=== PATIENT | female | born 1960 | race Two or more races ===

== ENCOUNTER 2016-09-09 15:43 | Emergency (ER) | payer OTHER ==
[~2016-09-09] VITALS: Ht 170.2 cm; Wt 75.3 kg
--- NOTE | 2016-09-09 15:50 | NUR ---
AAOX3, BIBRA C/O AICD KEEPS ON FIRING MULTIPLE TIME IN THE LAST 3 WEEKS. SHE NOTICED THAT THE AICD FIRED AGAIN THIS AFTERNOON AROUND 3PM. PATIENT PLACED ON MONITOR. RESP IS EVEN AND UNLABORED WITH NAD NOTED. SKIN IS WARM AND NON DIAPHORETIC. DR PARRA AT BS FOR EVAL.
--- NOTE | 2016-09-09 15:57 | NUR ---
CALLED [facility] SPOKE WITH ISIDRO , REQUESTED A PACEMAKER INTERROGATION.
[2016-09-09 16:19] LABS: BASOPHILS % (AUTO) 0.7 % (0.0-2.0); EOSINOPHILS % (AUTO) 0.1 % (0.0-6.0); HEMATOCRIT 31 % (33-45); HEMOGLOBIN 10.6 g/dL (11.5-14.8); LYMPHOCYTES # (AUTO) 1.1 /CMM (0.8-4.8); LYMPHOCYTES % (AUTO) 18.3 % (20.0-44.0); MEAN CORPUSCULAR HEMOGLOBIN 29 PG (26.0-33.0); MEAN CORPUSCULAR HGB CONC 34 g/dl (31.0-36.0); MEAN CORPUSCULAR VOLUME 86 fL (82-100); MONOCYTES # (AUTO) 0.7 /CMM (0.1-1.30); MONOCYTES % (AUTO) 10.5 % (2.0-12.0); NEUTROPHILS # (AUTO) 4.4 /CMM (1.8-8.9); NEUTROPHILS % (AUTO) 70.4 % (43.0-81.0); PLATELET COUNT (AUTO) 117 /CMM (150-450); RDW COEFFICIENT OF VARIATION 13.4 (11.5-15.0); RED BLOOD CELL COUNT(AUTO) 3.62 MIL/uL (4.0-5.2); WHITE BLOOD COUNT (AUTO) 6.2 K/uL (4.3-11.0)
[2016-09-09 16:28] LABS: CREATININE 1.3 mg/dL (0.6-1.3); POTASSIUM 3.2 mmol/L (3.5-5.1)
[2016-09-09 16:33] LABS: INR 1.22 (0.87-1.13); PROTHROMBIN TIME 12.8 SECS (9.5-12.7)
--- NOTE | 2016-09-09 16:40 | NUR ---
XRAY AT BS
[2016-09-09] MEDS ORDERED: POTASSIUM CHLORIDE 20 MEQ TAB.PRT.SR PO ONE ×2 (17:00→17:07)
--- NOTE | 2016-09-09 17:15 | NUR ---
PROVIDED WARM BLANKET FOR COMFORT.
--- NOTE | 2016-09-09 18:30 | NUR ---
VICTORINA INTERROGATION AT .
--- NOTE | 2016-09-09 19:03 | NUR ---
IV removed. Catheter intact and site benign. Pressure and 4x4 applied to site. No bleeding noted.Patient discharged to home in stable condition. Written and verbal after care instructions given. Patient verbalizes understanding of instruction.
[2016-09-09 19:05] VITALS: BP 132/75
== END 2016-09-09 19:10 | disposition home or self-care (01) ==
LOC: EDSEX 15:48 → ER 15:48
DX: T82.199A Other mechanical complication of unspecified cardiac device, initial encounter (principal); I10 Essential (primary) hypertension; E05.90 Thyrotoxicosis, unspecified without thyrotoxic crisis or storm; R79.1 Abnormal coagulation profile
CPT/HCPCS: 36415; 71010-TC; 80048-TC; 85025-TC; 85730-TC; A4606; A6402; Z7610